=== PATIENT | female | born 1935 | race Caucasian/White ===

== ENCOUNTER 2024-04-23 14:18 | Emergency (ER) | payer MEDICARE ==
[~2024-04-23] VITALS: Ht 172.7 cm; Wt 76.0 kg
[~2024-04-23 14:18] MED LIST: ASPIRIN EC325 MG PO; NORCO 10-325 T1 EACH PO; ZOFRAN ODT4 MG SL
[2024-04-23] MEDS ORDERED: QUETIAPINE FUMA25 MG PO (14:40)
[2024-04-23 15:34] LABS: BASOPHILS 0.9 % (0-2); EOSINOPHILS 2.5 % (0-6); HEMATOCRIT 36.9 % (35.0-50.0); HEMOGLOBIN 12.4 g/dL (12.0-18.0); LYMPHOCYTES 22.8 % (24-44); MCH 29.4 (27-36); MCHC 33.5 g/dl (30-36); MCV 87.9 fl (81-99); MONOCYTES 4.9 % (0-12); NEUTROPHILS 68.9 % (39-80); PLATELET COUNT 275 K/uL (140-440); RDW 14.3 (10.5-15.0)
[2024-04-23 15:52] LABS: LACTIC ACID, BLOOD 1.8 mmol/L (0.4-2.0)
[2024-04-23 17:30] LABS: BILIRUBIN, URINE NEGATIVE (negative); BLOOD/HGB, URINE NEGATIVE (Negative); KETONE, URINE NEGATIVE (Negative); LEUK ESTERASE, URINE NEGATIVE (negative); NITRITE, URINE NEGATIVE (negative)
[2024-04-23 17:30] LABS: ALBUMIN/GLOBULIN RATIO 0.81 (1.1-2.4); ANION GAP 9.7 (7-21); BILIRUBIN, TOTAL 0.2 ng/dL (0.2-1.0); BUN/CREATININE RATIO 20.21 (6.0-28.6); CALCIUM 9.2 mg/dL (8.5-10.1); CREATININE, SERUM 0.94 mg/dL (0.55-1.02); POTASSIUM 3.7 mmol/L (3.5-5.1); PROTEIN, TOTAL 6.7 g/dL (6.4-8.2)
[2024-04-23 18:34] VITALS: BP 150/69
--- NOTE | 2024-04-26 20:38 | EKG ---
[facility] [address] [address] [place] [id number] Signed Sinus bradycardia with 1st degree AV block Otherwise normal ECG No previous ECGs available Confirmed by Lyudmila Coulter MD ([id number]) on 04/26/2024 8:38:09 PM Electronically Signed By: LYUDMILA COULTER DO 04/26/242037 PATIENT NAME: WOODROW PERDUE Electrocardiogram DATE OF : [birth year] PHYSICIAN: LYUDMILA COULTER DO REPORT #: [id number] REPORT IS CONFIDENTIAL AND NOT TO BE RELEASED WITHOUT AUTHORIZATION
== END 2024-04-23 18:35 | disposition home or self-care (01) ==
LOC: ED 14:18
PROVIDERS: Emergency Medicine
DX: Z03.89 Encounter for observation for other suspected diseases and conditions ruled out (principal); F03.90 Unspecified dementia, unspecified severity, without behavioral disturbance, psychotic disturbance, mood disturbance, and anxiety; I44.0 Atrioventricular block, first degree; Z85.828 Personal history of other malignant neoplasm of skin; Z96.652 Presence of left artificial knee joint; Z79.82 Long term (current) use of aspirin; Z79.899 Other long term (current) drug therapy
CPT/HCPCS: 36415; 51702; 80053; 81003; 83605; 84484; 85025; 93005; 93010; 99284-25